=== PATIENT | female | born 1955 | race African-American/Black ===

== ENCOUNTER 2017-08-09 12:04 | Emergency (ER) | payer OTHER ==
[~2017-08-09] VITALS: Ht 175.3 cm; Wt 81.6 kg
--- NOTE | 2017-08-09 12:21 | Emergency Room Report ---
History of Present Illness General Chief Complaint: Gastrointestinal Bleed Source: Patient, EMS (TESHA [email or web address].Darren) Present Illness HPI The patient is a 62-year-old female presenting for dark stools and fatigue. She states that she had 2 bowel movements last night described as dark brown to black which is abnormal for her. She denies eating any foods that may have caused discoloration. She denies seeing any bright blood. She denies abdominal pain. She states that she was diagnosed with the GI bleed 7 years prior possible due to perforated ulcer and did not have any surgery. She denies any other symptoms including nausea, vomiting, fever, chills, back pain, chest pain, shortness of breath, dizziness, headache (TESHA LORENZO P.ALorne) Allergies: Coded Allergies: CODEINE (Verified Allergy, Unknown, 03/25/10) NSAIDS (NON-STEROIDAL ANTI-INFLAMMA (Verified Adverse Reaction, Unknown, NO NSAIDS-GI BLEED, 03/25/10) Patient History Past Medical History: see triage record Pertinent Family History: none Reviewed Nursing Documentation: PMH: Agreed, PSxH: Agreed (TESHA LORENZO P.ALorne) Nursing Documentation-PMH Hx Hypertension: Yes (TESHA LORENZO P.ALorne) Review of Systems All Other Systems: negative except mentioned in HPI (TESHA LORENZO P.ALorne) Physical Exam Vital Signs Date Time Temp Pulse Resp B/P (MAP) Pulse Ox O2 Delivery O2 Flow Rate FiO2 08/09/17 11:57 98.2 85 16 99/64 100 Room Air Sp02 EP Interpretation: reviewed, normal General Appearance: no apparent distress, alert, GCS 15, non-toxic Head: normocephalic, atraumatic Eyes: bilateral eye normal inspection, bilateral eye PERRL ENT: hearing grossly normal, normal pharynx, no angioedema, normal voice Neck: full range of motion, supple/symm/no masses Respiratory: chest non-tender, lungs clear, normal breath sounds, speaking full sentences Cardiovascular #1: regular rate, rhythm, no edema Gastrointestinal: normal bowel sounds, non tender, soft, non-distended, no guarding, no rebound Rectal: normal rectal tone, heme positive stool Genitourinary: normal inspection, no CVA tenderness Musculoskeletal: back normal, gait/station normal, normal range of motion, non- tender Neurologic: alert, oriented x3, responsive, motor strength/tone normal, sensory intact, speech normal Psychiatric: judgement/insight normal, memory normal, mood/affect normal, no suicidal/homicidal ideation Skin: normal color, no rash, warm/dry, well hydrated Lymphatic: no adenopathy (ETSHA LORENZO) Medical Decision Making PA Attestation Dr. Rowland is my supervising physician. Patient management was discussed with my supervising physician (TESHA LORENZO) Diagnostic Impression: Primary Impression: Upper GI bleed Additional Impression: Anemia Qualified Codes: D50.8 - Other iron deficiency anemias ER Course The patient is a 62-year-old female presenting for dark stools and fatigue. Differential diagnoses considered include but not limited to GI bleed, gastritis , pancreatitis, appendicitis, AAA, hemorrhoid, among others PE: vitals stable. NAD Lungs CTA bilat RRR Abd is soft and non tender. Normal BS. No mass Rectal exam done with nurse Glenna in room. Guaiac +. No hemorrhoid Xrays unremarkable Blood work shows significant anemia with hemoglobin of 8.6 The patient is given consent for blood transfusion for 2 units. She will be transfused before being transferred to [facility]. Dr. Rowland has spoken with admitting physician. Pt agrees with this plan and is stable Laboratory Tests Test 08/09/17 12:53 White Blood Count 7.2 K/UL (4.8-10.8) Red Blood Count 2.90 M/UL (4.20-5.40) L Hemoglobin 8.6 G/DL (12.0-16.0) L Hematocrit 26.8 % (37.0-47.0) L Mean Corpuscular Volume 92 FL (80-99) Mean Corpuscular Hemoglobin 29.7 PG (27.0-31.0) Mean Corpuscular Hemoglobin Concent 32.2 G/DL (32.0-36.0) Red Cell Distribution Width 12.2 % (11.6-14.8) Platelet Count 233 K/UL (150-450) Mean Platelet Volume 6.8 FL (6.5-10.1) Neutrophils (%) (Auto) 54.6 % (45.0-75.0) Lymphocytes (%) (Auto) 31.3 % (20.0-45.0) Monocytes (%) (Auto) 11.4 % (1.0-10.0) H Eosinophils (%) (Auto) 1.3 % (0.0-3.0) Basophils (%) (Auto) 1.4 % (0.0-2.0) Prothrombin Time 10.1 SEC (9.30-11.50) Prothrombin Time INR 1.0 (0.9-1.1) PTT 25 SEC (23-33) Sodium Level 138 mEQ/L (135-145) Potassium Level 3.3 mEQ/L (3.4-4.9) L Chloride Level 99 mEQ/L (98-107) Carbon Dioxide Level 27 mEQ/L (20-30) Anion Gap 12 (5-15) Blood Urea Nitrogen 38 mg/dL (7-23) H Creatinine 0.9 mg/dL (0.5-0.9) Estimate Glomerular Filtration Rate > 60 mL/min (>60) Glucose Level 103 mg/dL (74-106) Calcium Level 8.7 mg/dL (8.6-10.2) Total Bilirubin 0.2 mg/dL (0.0-1.2) Aspartate Amino Transferase (AST) 26 U/L (5-40) Alanine Aminotransferase (ALT) 19 U/L (3-33) Alkaline Phosphatase 51 U/L (35-104) Troponin I < 0.30 ng/mL (<=0.30) Total Protein 6.1 g/dL (6.6-8.7) L Albumin 3.6 g/dL (3.5-5.2) Globulin 2.5 g/dL Albumin/Globulin Ratio 1.4 (1.0-2.7) Lipase 26 U/L (< 60) Lab Results Impression Significant anemia Otherwise unremarkable (TESHA LORENZO) ER Course I agree with above assessment. Patient examined by me and treatment plan reviewed in detail. Old records reviewed also. Has had blood in past due to GI bleed (2009). Patient with active bleeding. Needs to be transfused before transfer. Discussed this with Dr. Allan who agrees. (Travis Rowland M.D.) EKG Diagnostic Results EP Interpretation: NSR. No acute findings Rate: normal - 90 Rhythm: NSR ST Segments: no acute changes ASA given to the pt in ED: No PA Scribe Text EKG was reviewed and read with my supervising physician. No acute ST segment changes are seen. Normal rate and rhythm. No acute changes. (TESHA LORENZO P.ALorne) Chest X-Ray Diagnostic Results Chest X-Ray Diagnostic Results : Chest X-Ray Ordered: Yes # of Views/Limited/Complete: 1 View Indication: Other - GI bleed EP Interpretation: Yes Interpretation: no consolidation, no effusion, no pneumothorax, no acute cardiopulmonary disease Impression: No acute disease Electronically Signed by: MIRIAM Rodriguez Scribe Text My and my supervising physician's interpretation of the chest xrays are there is no consolidation, no effusion, no acute cardiopulmonary disease, no pneumothorax (TESHA LORENZO.ALorne) Chest X-Ray Diagnostic Results : Electronically Signed by: Scribe documentation reviewed by me and is accurate, Travis Rowland MD. (Travis Rowland M.D.) Other X-Ray Diagnostic Results Other X-Ray Diagnostic Results : X-Ray ordered: abd pain # of Views/Limited Vs Complete: 1 View Indication: Pain EP Interpretation: Yes Interpretation: no dislocation, no soft tissue swelling, no fractures, nonspecific bowel gas, no sbo Impression: No acute disease Electronically Signed by: MIRIAM Rodriguez Scribe Text I have reviewed the xray with my supervising physician and interpretation is that there are no acute findings. No free air (TESHA LORENZO P.A.) Other X-Ray Diagnostic Results : Electronically Signed by: Scribe documentation reviewed by me and is accurate, Travis Rowland MD. (Travis Rowland M.D.) Last Vital Signs Date Time Temp Pulse Resp B/P (MAP) Pulse Ox O2 Delivery O2 Flow Rate FiO2 08/09/17 11:57 98.2 85 16 99/64 100 Room Air Status: improved (TESHA LORENZOALorne) Last Vital Signs Date Time Temp Pulse Resp B/P (MAP) Pulse Ox O2 Delivery O2 Flow Rate FiO2 08/09/17 22:14 98.0 81 22 137/76 100 Room Air Status: improved (Travis Rowland M.D.) Disposition: XFER SHT-TRM HOSP Condition: Serious - but stable for transfer TESHA LORENZO Aug 09, 2017 12:21 Travis Rowland M.D. Aug 09, 2017 15:56
[2017-08-09 13:22] LABS: BASOPHILS % (AUTO) 1.4 % (0.0-2.0); EOSINOPHILS % (AUTO) 1.3 % (0.0-3.0); LYMPHOCYTES % (AUTO) 31.3 % (20.0-45.0); MEAN CORPUSCULAR HEMOGLOBIN 29.7 PG (27.0-31.0); MEAN CORPUSCULAR HGB CONC 32.2 G/DL (32.0-36.0); MEAN CORPUSCULAR VOLUME 92 FL (80-99); MEAN PLATELET VOLUME 6.8 FL (6.5-10.1); MONOCYTES % (AUTO) 11.4 % (1.0-10.0); NEUTROPHILS % (AUTO) 54.6 % (45.0-75.0); PLATELET COUNT 233 K/UL (150-450); RED CELL DISTRIBUTION WIDTH 12.2 % (11.6-14.8); WHITE BLOOD COUNT 7.2 K/UL (4.8-10.8)
[2017-08-09 13:33] LABS: PROTHROMBIN TIME 10.1 SEC (9.30-11.50)
[2017-08-09 13:34] LABS: ALANINE AMINOTRANSFERASE 19 U/L (3-33); ALBUMIN/GLOBULIN RATIO 1.4 (1.0-2.7); ANION GAP 12 (5-15); ASPARTATE AMINO TRANSFERASE 26 U/L (5-40); CALCIUM 8.7 mg/dL (8.6-10.2); CARBON DIOXIDE 27 mEQ/L (20-30); CHLORIDE 99 mEQ/L (98-107); CREATININE 0.9 mg/dL (0.5-0.9); GLOMERULAR FILTRATION RATE > 60 mL/min (>60); HEMOLYSIS 1; LIPASE 26 U/L (< 60); POTASSIUM 3.3 mEQ/L (3.4-4.9); SODIUM 138 mEQ/L (135-145); TOTAL PROTEIN 6.1 g/dL (6.6-8.7); TROPONIN I < 0.30 ng/mL (<=0.30)
[2017-08-09 14:00] VITALS: BP 133/57
[2017-08-09] MEDS ORDERED: Pantoprazole Inj IVP ONE (14:00)
--- NOTE | 2017-08-09 14:40 | Diagnostic Imaging Report ---
Indication: Dyspnea Comparison: None A single view chest radiograph was obtained. Findings: Cardiomediastinal appearance is within normal limits for age. Pulmonary vascularity is appropriate. The diaphragmatic contour is smooth and costophrenic angles are sharp. No pleural effusions are identified. The bones are unremarkable. Impression: No acute findings
--- NOTE | 2017-08-09 14:40 | Diagnostic Imaging Report ---
Indication: Abdominal pain Comparison: None Single view of the abdomen obtained Findings: Bowel gas pattern is nonspecific. No mass, ectopic calcifications, or abnormal gas collections are identified. The bones are osteopenic. There are degenerative changes of the lumbosacral junction. Impression: No acute findings
[2017-08-09] MEDS ORDERED: ASPIRIN81 MG ORAL (14:55)
[2017-08-09 16:05] VITALS: BP 134/89
[2017-08-09 17:51] LABS: APPEARANCE,URINE CLEAR; KETONES,URINE NEGATIVE (NEGATIVE); LEUKOCYTE ESTERASE ,URINE 2+ (NEGATIVE); NITRITE,URINE NEGATIVE (NEGATIVE); PH,URINE 7 (4.5-8.0); PROTEIN,URINE NEGATIVE (NEGATIVE); UROBILINOGEN,URINE NORMAL MG/DL (0.0-1.0)
[2017-08-09 18:01] LABS: BACTERIA,URINE FEW /HPF; SQUAMOUS EPITHELIAL CELL,UR FEW /LPF (NONE/OCC); WBC,URINE 0-2 /HPF (0 - 2)
[2017-08-09 18:02] LABS: AMORPHOUS SEDIMENT,UR FEW /LPF
[2017-08-09 19:39] VITALS: BP 130/59
[2017-08-09 22:14] VITALS: BP_SYST 130; BP_SYST 137; BP_DIAS 59; BP_DIAS 76
--- NOTE | 2017-08-10 18:03 | Cardiology Report ---
APPROVED REPORT EKG Measurement Heart [id number] Normal sinus rhythm Possible Left atrial enlargement Left ventricular hypertrophy Nonspecific T wave abnormality Prolonged QT Abnormal ECG
== END 2017-08-09 22:15 | disposition short-term general hospital (02) ==
LOC: EDBD 12:04 → EMR 12:38
DX: K92.2 Gastrointestinal hemorrhage, unspecified (principal); D64.9 Anemia, unspecified; I10 Essential (primary) hypertension; Z88.6 Allergy status to analgesic agent; R06.00 Dyspnea, unspecified
CPT/HCPCS: 36415; 71010; 74000; 80053; 81003; 83690; 84484; 85025; 85610; 85730; 86850; 86900; 86901; 86920; 93005; 96361; 96374; 99285; C9113; P9016